=== PATIENT | female | born 1950 | race American Indian/Alaskan Native ===

== ENCOUNTER 2016-06-07 11:12 | Outpatient (CLI) | payer BC ==
--- NOTE | 2016-06-08 08:35 | Mammography Report ---
BILATERAL DIGITAL SCREENING MAMMOGRAM with CAD: 06/07/16 11:12:00 CLINICAL: Routine screening.Status post benign biopsy of a right subareolar mass. The pathology revealed benign fibroadenoma and proliferative fibrocystic changes. COMPARISON:06/01/15 FINDINGS: The breasts are almost entirely fatty.Stable bilateral benign calcifications. Right subareolar biopsy clip and stable low density 8 mm circumscribed mass. No new mass, architectural distortion or suspicious calcifications. IMPRESSION: No mammographic evidence of malignancy. BI-RADS CATEGORY: 2 - - Benign RECOMMENDATION: Routine mammographic screening in one year. COMMENT: Patient follow-up letters are generated by our [employer] application.
== END 2016-06-07 11:13 | disposition home or self-care (01) ==
LOC: SPVWC 11:12
PROVIDERS: ATTEND Internal Medicine
DX: Z12.31 Encounter for screening mammogram for malignant neoplasm of breast (principal)
CPT/HCPCS: 77067; G0202